=== PATIENT | male | born 1970 | race Caucasian/White ===

== ENCOUNTER 2017-11-17 19:30 | Emergency (ER) | payer OTHER ==
[~2017-11-17] VITALS: Ht 198.1 cm; Wt 90.7 kg
[~2017-11-17 19:30] MED LIST: ALBU8HFA2 INH; AMIT10; AZIT250 PO; CYCL10; DIAZ5 PO; DIAZ5EL; FLUO10 PO; FLUO20 PO; IBUP800 PO; LOPE2C PO; LORA.5 PO; LORA1 PO; NAPR500 PO; Norco 5-325 Ta1 EACH PO; OSEL75CA PO; PANT20; PRAZ1 PO; SUMA25 PO; TRAM50; Zofran8 MG PO
[2017-11-17] MEDS ORDERED: FLUO10 PO (20:41)
[2017-11-17] MEDS ORDERED: GABA300 PO (20:42)
[2017-11-17] MEDS ORDERED: PROP10 PO (20:43)
[2017-11-17] MEDS ORDERED: QUET25 PO (20:43)
[2017-11-17] MEDS ORDERED: HYDPAM50 PO (20:44)
[2017-11-17] MEDS ORDERED: SUCR1 PO (20:45)
[2018-02-17] MEDS ORDERED: QUET25 PO (20:52)
[2018-02-17] MEDS ORDERED: GABA300 PO (20:52)
[2018-02-17] MEDS ORDERED: ZYPREXA PO (20:53)
[2018-02-17] MEDS ORDERED: PROP10 PO (20:53)
[2018-02-17] MEDS ORDERED: Tamiflu75 MG PO (23:27)
== END 2017-11-17 21:42 | disposition home or self-care (01) ==
LOC: ER 19:30
DX: F32.9 Major depressive disorder, single episode, unspecified (principal); K21.9 Gastro-esophageal reflux disease without esophagitis; F41.9 Anxiety disorder, unspecified; Z79.899 Other long term (current) drug therapy
CPT/HCPCS: 99282

== ENCOUNTER 2017-12-14 00:46 | Emergency (ER) | payer OTHER ==
[~2017-12-14] VITALS: Ht 198.1 cm; Wt 93.0 kg
[~2017-12-14 00:46] MED LIST changes: +GABA300 PO; +HYDPAM50 PO; +PROP10 PO; +QUET25 PO; +SUCR1 PO
[2017-12-14] MEDS ORDERED: OLAN5 PO (01:16)
[2017-12-14 01:41] LABS: BASOPHILS ABSOLUTE AUTO 0.03 K/mm3 (0.00-0.23); BASOPHILS PERCENT AUTO 1 % (0-2); EOSINOPHILS ABSOLUTE AUTO 0.02 K/mm3 (0.00-0.68); EOSINOPHILS PERCENT AUTO 0 % (0-6); Hematocrit 44.6 % (37.0-53.0); Hemoglobin 15.1 g/dL (13.5-17.5); IMMATURE GRAN ABSOLUTE AUTO 0.03 K/mm3 (0.00-0.10); IMMATURE GRAN PERCENT AUTO 1 % (0-1); LYMPHOCYTES ABSOLUTE AUTO 1.16 K/mm3 (0.84-5.20); LYMPHOCYTES PERCENT AUTO 18 % (21-46); MONOCYTES ABSOLUTE AUTO 0.36 K/mm3 (0.16-1.47); MONOCYTES PERCENT AUTO 6 % (4-13); Mean Corpuscular HGB 30.4 pg (26.0-34.0); Mean Corpuscular HGB Conc 33.9 g/dL (31.5-36.5); Mean Corpuscular Volume 90 fL (80-100); Mean Platelet Volume 10.3 fL (9.1-12.4); NEUTROPHILS ABSOLUTE AUTO 4.93 K/mm3 (1.96-9.15); NEUTROPHILS PERCENT AUTO 75 % (41-73); Platelet Count 217 K/mm3 (150-400); RDW Coefficient Variation 13.3 % (11.7-14.2); Red Blood Cell Count 4.97 M/mm3 (4.30-5.90); White Blood Cell Count 6.53 K/mm3 (4.00-11.30)
[2017-12-14 01:54] LABS: Alanine Aminotransfer (ALT/SGP 20 U/L (12-78); Albumin, Blood 3.8 g/dL (3.4-5.0); Alk Phos 76 U/L (50-136); Anion Gap 8 mmol/L (6-16); Aspartate Aminotrans (AST/SGOT 16 U/L (12-37); Bilirubin, Total 0.3 mg/dL (0.1-1.0); Blood Urea Nitrogen 10 mg/dL (8-24); Bun/Creatinine Ratio 11.4 (12.0-20.0); CO2, Blood 28 mmol/L (21-32); Calcium, Blood 8.3 mg/dL (8.5-10.1); Chloride, Blood 105 mmol/L (98-108); Creatinine, Blood 0.88 mg/dL (0.60-1.20); Globulin, Blood 3.8 g/dL (2.2-4.0); Glomerular Filtration Rate >60 (60-); Glucose, Blood 119 mg/dL (70-99); Potassium, Blood 3.9 mmol/L (3.5-5.5); Sodium, Blood 141 mmol/L (136-145); Total Protein, Blood 7.6 g/dL (6.4-8.2)
[2018-02-17] MEDS ORDERED: GABA300 PO (20:52)
[2018-02-17] MEDS ORDERED: QUET25 PO (20:52)
[2018-02-17] MEDS ORDERED: ZYPREXA PO (20:53)
[2018-02-17] MEDS ORDERED: PROP10 PO (20:53)
[2018-02-17] MEDS ORDERED: Tamiflu75 MG PO (23:27)
== END 2017-12-14 04:04 | disposition home or self-care (01) ==
LOC: ER 00:46
PROVIDERS: Emergency Medicine
DX: R11.2 Nausea with vomiting, unspecified (principal); Z79.899 Other long term (current) drug therapy; Z79.891 Long term (current) use of opiate analgesic; F41.9 Anxiety disorder, unspecified; K21.9 Gastro-esophageal reflux disease without esophagitis
CPT/HCPCS: 80053; 83690; 85025; 96361; 96374; 96376; 99283; J2405; J7030

== ENCOUNTER 2018-02-14 22:29 | Emergency (ER) | payer OTHER ==
[~2018-02-14] VITALS: Ht 198.1 cm; Wt 95.2 kg
[~2018-02-14 22:29] MED LIST changes: +OLAN5 PO
[2018-02-17] MEDS ORDERED: GABA300 PO (20:52)
[2018-02-17] MEDS ORDERED: QUET25 PO (20:52)
[2018-02-17] MEDS ORDERED: ZYPREXA PO (20:53)
[2018-02-17] MEDS ORDERED: PROP10 PO (20:53)
[2018-02-17] MEDS ORDERED: Tamiflu75 MG PO (23:27)
== END 2018-02-15 00:25 | disposition home or self-care (01) ==
LOC: ER 22:29
DX: T40.2X1A Poisoning by other opioids, accidental (unintentional), initial encounter (principal); F10.129 Alcohol abuse with intoxication, unspecified; Z79.899 Other long term (current) drug therapy; F41.9 Anxiety disorder, unspecified; K21.9 Gastro-esophageal reflux disease without esophagitis
CPT/HCPCS: 99283

== ENCOUNTER 2018-05-23 22:33 | Emergency (ER) | payer OTHER ==
[~2018-05-23] VITALS: Ht 198.1 cm; Wt 90.7 kg
[~2018-05-23 22:33] MED LIST changes: +Tamiflu75 MG PO; +ZYPREXA PO
== END 2018-05-23 23:16 | disposition left against medical advice (07) ==
LOC: ER 22:33
DX: Z53.21 Procedure and treatment not carried out due to patient leaving prior to being seen by health care provider (principal)
CPT/HCPCS: 93005; 93010

== ENCOUNTER → 2018-06-25 | Outpatient (CLI) | payer OTHER | LOC: LAB EV 11:00 | DX: A04.8 Other specified bacterial intestinal infections (principal); B96.81 Helicobacter pylori [H. pylori] as the cause of diseases classified elsewhere | CPT/HCPCS: 87338 ==

== ENCOUNTER 2018-11-09 11:08 | Emergency (ER) | payer OTHER ==
[~2018-11-09] VITALS: Ht 182.9 cm; Wt 72.6 kg
[2018-11-09] MEDS ORDERED: Acetaminophen-1 EAC1 PO (12:53)
[2018-11-09] MEDS ORDERED: IBUP800 PO (12:53)
== END 2018-11-09 13:15 | disposition home or self-care (01) ==
LOC: ER 11:08
DX: S01.21XA Laceration without foreign body of nose, initial encounter (principal); Y04.8XXA Assault by other bodily force, initial encounter; Z79.899 Other long term (current) drug therapy; F41.9 Anxiety disorder, unspecified; K21.9 Gastro-esophageal reflux disease without esophagitis
CPT/HCPCS: 70160; 99284-25

== ENCOUNTER 2019-10-20 14:25 | Emergency (ER) | payer OTHER ==
[~2019-10-20] VITALS: Ht 198.1 cm; Wt 93.4 kg
[~2019-10-20 14:25] MED LIST changes: +Acetaminophen-1 EAC1 PO
[2019-10-20] MEDS ORDERED: CYCL10 PO (15:53)
[2019-10-20] MEDS ORDERED: QUETIAPINE FUMA25 MG (15:58)
[2019-10-20] MEDS ORDERED: Hydroxyzine HCl50 MG (15:58)
[2019-10-20] MEDS ORDERED: Mobic7.5 MG (15:58)
[2019-10-20] MEDS ORDERED: ALPRAZOLAM0.5 M1 (15:58)
[2019-10-20] MEDS ORDERED: TAMSULOSIN HCL0.4 M1 (15:58)
[2019-10-20] MEDS ORDERED: NEURONTIN300 MG (15:58)
[2019-10-20] MEDS ORDERED: PROZAC20 MG (15:58)
[2019-10-20] MEDS ORDERED: LIDOCAINE PAIN1 EACH TD (16:12)
== END 2019-10-20 16:15 | disposition home or self-care (01) ==
LOC: ER 14:25
DX: M25.511 Pain in right shoulder (principal); F41.9 Anxiety disorder, unspecified; K21.9 Gastro-esophageal reflux disease without esophagitis; Z79.899 Other long term (current) drug therapy
CPT/HCPCS: 99282

== ENCOUNTER 2022-07-08 19:55 | Emergency (ER) | payer OTHER ==
[~2022-07-08] VITALS: Ht 198.1 cm; Wt 91.2 kg
[~2022-07-08 19:55] MED LIST changes: +ALPRAZOLAM0.5 M1; +CYCL10 PO; +Hydroxyzine HCl50 MG; +LIDOCAINE PAIN1 EACH TD; +Mobic7.5 MG; +NEURONTIN300 MG; +PROZAC20 MG; +QUETIAPINE FUMA25 MG; +TAMSULOSIN HCL0.4 M1
== END 2022-07-08 21:34 | disposition home or self-care (01) ==
LOC: ER 19:55
DX: S22.42XA Multiple fractures of ribs, left side, initial encounter for closed fracture (principal); Y04.0XXA Assault by unarmed brawl or fight, initial encounter; Y92.149 Unspecified place in prison as the place of occurrence of the external cause; Z79.899 Other long term (current) drug therapy
CPT/HCPCS: 71101; A9270; J1885

== ENCOUNTER 2022-07-11 18:12 | Emergency (ER) | payer OTHER ==
[~2022-07-11] VITALS: Ht 198.1 cm; Wt 94.3 kg
[2022-07-11] MEDS ORDERED: Percocet 5-3251 EACH PO (21:17)
== END 2022-07-11 21:41 | disposition home or self-care (01) ==
LOC: ER 18:12
DX: S22.42XA Multiple fractures of ribs, left side, initial encounter for closed fracture (principal); X58.XXXA Exposure to other specified factors, initial encounter
CPT/HCPCS: A9270; J1885

== ENCOUNTER 2023-04-14 16:32 | Observation (INO) | payer OTHER ==
[~2023-04-14] VITALS: Ht 198.1 cm; Wt 103.5 kg
[~2023-04-14 16:32] MED LIST changes: +Percocet 5-3251 EACH PO; -QUETIAPINE FUMA25 MG; +QUETIAPINE FUMA25 MG PO
[2023-04-14 17:06] LABS: BASOPHILS ABSOLUTE AUTO 0.06 K/mm3 (0.00-0.23); BASOPHILS PERCENT AUTO 1 % (0-2); EOSINOPHILS ABSOLUTE AUTO 0.19 K/mm3 (0.00-0.68); EOSINOPHILS PERCENT AUTO 2 % (0-6); Hematocrit 44.3 % (37.0-53.0); Hemoglobin 15.6 g/dL (13.5-17.5); IMMATURE GRAN ABSOLUTE AUTO 0.06 K/mm3 (0.00-0.10); IMMATURE GRAN PERCENT AUTO 1 % (0-1); LYMPHOCYTES ABSOLUTE AUTO 3.02 K/mm3 (0.84-5.20); LYMPHOCYTES PERCENT AUTO 28 % (21-46); MONOCYTES ABSOLUTE AUTO 0.86 K/mm3 (0.16-1.47); MONOCYTES PERCENT AUTO 8 % (4-13); Mean Corpuscular HGB 30.2 pg (26.0-34.0); Mean Corpuscular HGB Conc 35.2 g/dL (31.5-36.5); Mean Corpuscular Volume 86 fL (80-100); Mean Platelet Volume 10.6 fL (9.1-12.4); NEUTROPHILS ABSOLUTE AUTO 6.52 K/mm3 (1.96-9.15); NEUTROPHILS PERCENT AUTO 61 % (41-73); Platelet Count 278 K/mm3 (150-400); RDW Coefficient Variation 13.2 % (11.7-14.2); RDW Standard Deviation 41.2 fL (35.1-46.3); Red Blood Cell Count 5.16 M/mm3 (4.30-5.90); White Blood Cell Count 10.71 K/mm3 (4.00-11.30)
[2023-04-14 17:33] LABS: Albumin, Blood 3.8 g/dL (3.4-5.0); Bilirubin, Total 0.4 mg/dL (0.1-1.0); Bun/Creatinine Ratio 13.6 (12.0-20.0); Calcium, Blood 9.3 mg/dL (8.5-10.1); Creatinine, Blood 1.18 mg/dL (0.60-1.20); Globulin, Blood 3.7 g/dL (2.2-4.0); Potassium, Blood 3.5 mmol/L (3.5-5.5); Total Protein, Blood 7.5 g/dL (6.4-8.2)
[2023-04-14] MEDS ORDERED: DICY20 PO (21:57)
[2023-04-14] MEDS ORDERED: OMEP20ER PO (21:57)
[2023-04-14] MEDS ORDERED: ONDA4ODT MM (21:57)
[2023-04-15 01:38] VITALS: BP 154/99
--- NOTE | 2023-04-15 02:51 | NUR ---
PATIENT ARRIVED FROM ER AND BEFORE HE WAS IN THE ROOM HE WAS ASKING NURSE TO REMOVE NG TUBE IN THE HALLWAY. NURSE SETTLED PATIENT IN BED ASKED HIM TO ALLOW NURSE TO EXPLAIN WHAT THE TUBE WAS FRO AND PROVIDE EDUCATION. PATIENT LISTENED BUT STATED HE FELT LIKE HE WAS HAVING A PANIC ATTACK. MD NOTIFIED, IV ATIVAN ORDERED AND GIVEN. REQUESTED PATIENT ALLOW NURSE TO FINISH HIS ADMISSION THEN WE CAN TALK ABOUT THE PLAN OF CARE WHILE HIS ANXIETY MEDS START TO TAKE EFFECT. PATIENT COMPLIED WITH ADMISSION BUT WAS ADAMANT THAT HE WAS LEAVING AND NEEDED THE NG TUBE OUT. NURSE EDUCATED PATIENT ON RISK OF LEAVING AGAINST MEDICAL ADVISE. PATIENT AGREED AFTER LONG CONVERSATION THAT HE WOULD STAY IF NG TUBE REMOVED. MD NOTIFIED AND NG TUBE REMOVED. PATIENT NOW RESTING IN BED. PATIENT REPORTS PAIN IS TOLERABLE AND HE IS NO LONGER NAUSEATED.
[2023-04-15 05:09] LABS: BASOPHILS ABSOLUTE AUTO 0.02 K/mm3 (0.00-0.23); BASOPHILS PERCENT AUTO 0 % (0-2); EOSINOPHILS ABSOLUTE AUTO 0.01 K/mm3 (0.00-0.68); EOSINOPHILS PERCENT AUTO 0 % (0-6); Hematocrit 43.2 % (37.0-53.0); Hemoglobin 14.8 g/dL (13.5-17.5); IMMATURE GRAN ABSOLUTE AUTO 0.03 K/mm3 (0.00-0.10); IMMATURE GRAN PERCENT AUTO 0 % (0-1); LYMPHOCYTES ABSOLUTE AUTO 1.07 K/mm3 (0.84-5.20); LYMPHOCYTES PERCENT AUTO 12 % (21-46); MONOCYTES ABSOLUTE AUTO 0.71 K/mm3 (0.16-1.47); MONOCYTES PERCENT AUTO 8 % (4-13); Mean Corpuscular HGB 30.1 pg (26.0-34.0); Mean Corpuscular HGB Conc 34.3 g/dL (31.5-36.5); Mean Corpuscular Volume 88 fL (80-100); Mean Platelet Volume 10.6 fL (9.1-12.4); NEUTROPHILS ABSOLUTE AUTO 7.27 K/mm3 (1.96-9.15); NEUTROPHILS PERCENT AUTO 80 % (41-73); Platelet Count 222 K/mm3 (150-400); RDW Coefficient Variation 13.4 % (11.7-14.2); RDW Standard Deviation 43.3 fL (35.1-46.3); Red Blood Cell Count 4.92 M/mm3 (4.30-5.90); White Blood Cell Count 9.11 K/mm3 (4.00-11.30)
--- NOTE | 2023-04-15 05:16 | NUR ---
SUMMARY: PATIENT ADMITTED OVERNIGHT FOR SBO. PATIENT ARRIVED WITH NG AND REPORTED HE WAS HAVING A PANIC ATTACK AND REFUSED TO LEAVE IT IN. MD NOTIFIED, MEDS GIVEN BEFORE REMOVEAL TO TRY AND HELP PATIENT RELAX. PATIENT STILL REFUSED NG AFTER EDUCATION WAS PROVIDED. PATIENT SHORTLY AFTER REMOVAL OF NG TUBE REPORTED PAIN IN HIS ABDOMEN AGAIN. PAIN MEDS GIVEN 1X. IV FLUIDS RUNNING. PATIENT AOX4.
[2023-04-15 05:32] LABS: Albumin, Blood 3.7 g/dL (3.4-5.0); Albumin/Globulin Ratio 1.1 (0.8-1.8); Bilirubin, Total 0.8 mg/dL (0.1-1.0); Bun/Creatinine Ratio 12.2 (12.0-20.0); Calcium, Blood 8.6 mg/dL (8.5-10.1); Creatinine, Blood 0.98 mg/dL (0.60-1.20); Globulin, Blood 3.3 g/dL (2.2-4.0)
--- NOTE | 2023-04-15 06:18 | NUR ---
PATIENT WOKE UP THIS MORNING AND STATED THAT HE WANTED TO GO TO WORK TO HE WAS GOING TO CHECK OUT. EDUCATED PATIENT THAT HE SHOULD STAY AND SPEAK WITH A PHYSICIAN THIS MORNING. PATIENT POLITELY DECLINED STATED THAT HE NEEDED TO GET TO WORK. RISK VS BENEFIT OF STAYING AND LEAVING REVIEWED WITH PATIENT. PATIENT VERBALIZED UNDERSTANDING AND SIGNED AMA FORM. PATIENT IV WAS REMOVED AND HE WALKED INDEPENDENTLY OFF UNIT.
[2023-04-15] MEDS ORDERED: Prozac40 MG PO (15:16)
[2023-04-15] MEDS ORDERED: GABA300 PO (15:17)
== END 2023-04-15 06:20 | disposition left against medical advice (07) ==
LOC: ER 16:32 → MEDS 16:33
PROVIDERS: Emergency Medicine; Family Medicine; ADMIT Hospitalist
DX: K56.609 Unspecified intestinal obstruction, unspecified as to partial versus complete obstruction (principal); F41.9 Anxiety disorder, unspecified; N40.0 Benign prostatic hyperplasia without lower urinary tract symptoms; G89.29 Other chronic pain; M54.9 Dorsalgia, unspecified; F32.A Depression, unspecified; G47.00 Insomnia, unspecified; Z53.29 Procedure and treatment not carried out because of patient's decision for other reasons
CPT/HCPCS: 36415; 71045; 74177; 80053; 83690; 84484; 85025; 93005; 93010; 96372-59; 96374-59; 96375; 96376; 99285-25; G0378; J0500; J1170; J2060; J2270; J2405; J7030; Q9967

== ENCOUNTER 2023-04-15 10:04 | Inpatient (IN) | payer OTHER ==
[~2023-04-15] VITALS: Ht 198.1 cm; Wt 108.7 kg
[~2023-04-15 10:04] MED LIST changes: +DICY20 PO; +OMEP20ER PO; +ONDA4ODT MM
[2023-04-15 10:31] LABS: BASOPHILS ABSOLUTE AUTO 0.03 K/mm3 (0.00-0.23); BASOPHILS PERCENT AUTO 0 % (0-2); EOSINOPHILS ABSOLUTE AUTO 0.03 K/mm3 (0.00-0.68); EOSINOPHILS PERCENT AUTO 0 % (0-6); Hematocrit 47.1 % (37.0-53.0); Hemoglobin 16.3 g/dL (13.5-17.5); IMMATURE GRAN ABSOLUTE AUTO 0.04 K/mm3 (0.00-0.10); IMMATURE GRAN PERCENT AUTO 0 % (0-1); LYMPHOCYTES ABSOLUTE AUTO 1.19 K/mm3 (0.84-5.20); LYMPHOCYTES PERCENT AUTO 11 % (21-46); MONOCYTES ABSOLUTE AUTO 0.83 K/mm3 (0.16-1.47); MONOCYTES PERCENT AUTO 8 % (4-13); Mean Corpuscular HGB 30.4 pg (26.0-34.0); Mean Corpuscular HGB Conc 34.6 g/dL (31.5-36.5); Mean Corpuscular Volume 88 fL (80-100); NEUTROPHILS ABSOLUTE AUTO 8.81 K/mm3 (1.96-9.15); NEUTROPHILS PERCENT AUTO 81 % (41-73); RDW Coefficient Variation 13.8 % (11.7-14.2); RDW Standard Deviation 43.8 fL (35.1-46.3); Red Blood Cell Count 5.36 M/mm3 (4.30-5.90); White Blood Cell Count 10.93 K/mm3 (4.00-11.30)
[2023-04-15 10:48] LABS: Albumin, Blood 3.8 g/dL (3.4-5.0); Bilirubin, Total 1.3 mg/dL (0.1-1.0); Bun/Creatinine Ratio 13.1 (12.0-20.0); Calcium, Blood 9.4 mg/dL (8.5-10.1); Globulin, Blood 3.7 g/dL (2.2-4.0); Potassium, Blood 5.4 mmol/L (3.5-5.5); Total Protein, Blood 7.5 g/dL (6.4-8.2)
[2023-04-15 10:51] LABS: Mean Platelet Volume 10.8 fL (9.1-12.4); Platelet Count 233 K/mm3 (150-400)
[2023-04-15 13:25] VITALS: BP 166/107
[2023-04-15] MEDS ORDERED: Prozac40 MG PO (15:16)
[2023-04-15] MEDS ORDERED: GABA300 PO (15:17)
[2023-04-15 16:22] VITALS: BP 140/91
--- NOTE | 2023-04-15 18:02 | NUR ---
NEW ER ADMIT Patient readmitted for SBO, left this morning. Verbalized severe pain, anxiety, and felt "claustrophobic" when the NG tube was placed last night. Provided education on SBO & interventions for bowel rest, NPO, and if needed NG tube. Pt verbalized understanding plan of care. Administred IV Toradol & heating pad for ABD. Toradol IV effective for pain management. Bowel tones absent, except for RLQ quiet sounds observed. Reports mild nausea, no vomiting. Vitals stable, systolic 140-160s. Home meds not ordered at this time, pt states he is unable to tolerate PO meds, vomited this morning when eating. Ativan given for anxiety, patient comfortable at this time. Will continue plan of care.
[2023-04-15 19:09] VITALS: BP 146/97
[2023-04-16 03:49] VITALS: BP 133/86
--- NOTE | 2023-04-16 04:27 | NUR ---
RN SUPPLEMENTAL SUMMARY A/OX4. INDEPENDENT IN THE ROOM. ABLE TO MAKE NEEDS KNOWN. PT C/O OF RIGHT QUAD ABD PAIN T/O THE NIGHT. MED PER EMAR. PT HAVING EPISODES OF ANXIETY--GETTIN OUT OF BED, PACING. APROX 0345; PT HAVING INCONT BOWEL MOVMENT. WOKE HIM UP OUT OF SLEEP AND FINISHED IN THE BATHROOM. THIS NURSE DID NOT OBSERVE STOOL; PT REPORTS MOSTLY SOFT/LIQUID. PT ALSO REPORTS AT THAT TIME PAIN WAS MUCH IMPROVED.
[2023-04-16 04:30] LABS: BASOPHILS ABSOLUTE AUTO 0.03 K/mm3 (0.00-0.23); BASOPHILS PERCENT AUTO 0 % (0-2); EOSINOPHILS ABSOLUTE AUTO 0.03 K/mm3 (0.00-0.68); EOSINOPHILS PERCENT AUTO 0 % (0-6); Hematocrit 41.6 % (37.0-53.0); Hemoglobin 14.2 g/dL (13.5-17.5); IMMATURE GRAN ABSOLUTE AUTO 0.04 K/mm3 (0.00-0.10); IMMATURE GRAN PERCENT AUTO 1 % (0-1); LYMPHOCYTES PERCENT AUTO 12 % (21-46); MONOCYTES ABSOLUTE AUTO 0.69 K/mm3 (0.16-1.47); MONOCYTES PERCENT AUTO 8 % (4-13); Mean Corpuscular HGB 30.5 pg (26.0-34.0); Mean Corpuscular HGB Conc 34.1 g/dL (31.5-36.5); Mean Corpuscular Volume 90 fL (80-100); Mean Platelet Volume 10.4 fL (9.1-12.4); NEUTROPHILS ABSOLUTE AUTO 6.89 K/mm3 (1.96-9.15); NEUTROPHILS PERCENT AUTO 80 % (41-73); Platelet Count 209 K/mm3 (150-400); RDW Coefficient Variation 13.9 % (11.7-14.2); RDW Standard Deviation 45.6 fL (35.1-46.3); Red Blood Cell Count 4.65 M/mm3 (4.30-5.90); White Blood Cell Count 8.68 K/mm3 (4.00-11.30)
[2023-04-16 04:50] LABS: Albumin, Blood 3.2 g/dL (3.4-5.0); Albumin/Globulin Ratio 1.1 (0.8-1.8); Bilirubin, Total 1.1 mg/dL (0.1-1.0); Bun/Creatinine Ratio 14.8 (12.0-20.0); Calcium, Blood 8.1 mg/dL (8.5-10.1); Creatinine, Blood 1.08 mg/dL (0.60-1.20); Magnesium, Blood 1.9 mg/dL (1.6-2.4); Potassium, Blood 3.6 mmol/L (3.5-5.5); Total Protein, Blood 6.2 g/dL (6.4-8.2)
[2023-04-16 07:41] VITALS: BP 125/83
--- NOTE | 2023-04-16 08:05 | NUR ---
pt laying in bed awake a/ox4, pleasant and cooperative with care, follows commands well, denies pain at this time, lungs are clear t/o, on r/a, resp even and unlabored, no cough noted, hrr, no edema noted, ppp+2, cap refill<3sec, vs stable, afebrile, iv site is clear and patent, btx4, abd flat soft, btx4 a bit hypoactive, voids without diff, skin c/w/d, maew, yusef, call light in reach.
[2023-04-16 16:25] VITALS: BP 119/70
--- NOTE | 2023-04-16 18:08 | NUR ---
pt had two soft bm's today, he is trying full liquid diet very slowly but states it is causing some bloating, he recieved one dose of ativan today for anxiety, slept for a while after, no further changes this shift. call light in reach, up ad keith in room.
[2023-04-16 19:54] VITALS: BP 138/86
[2023-04-17 04:41] VITALS: BP 116/82
[2023-04-17 05:23] LABS: BASOPHILS ABSOLUTE AUTO 0.03 K/mm3 (0.00-0.23); BASOPHILS PERCENT AUTO 1 % (0-2); EOSINOPHILS PERCENT AUTO 4 % (0-6); Hemoglobin 13.1 g/dL (13.5-17.5); IMMATURE GRAN ABSOLUTE AUTO 0.02 K/mm3 (0.00-0.10); IMMATURE GRAN PERCENT AUTO 0 % (0-1); LYMPHOCYTES ABSOLUTE AUTO 1.28 K/mm3 (0.84-5.20); LYMPHOCYTES PERCENT AUTO 27 % (21-46); MONOCYTES ABSOLUTE AUTO 0.49 K/mm3 (0.16-1.47); MONOCYTES PERCENT AUTO 10 % (4-13); Mean Corpuscular HGB 30.2 pg (26.0-34.0); Mean Corpuscular HGB Conc 33.6 g/dL (31.5-36.5); Mean Corpuscular Volume 90 fL (80-100); Mean Platelet Volume 10.3 fL (9.1-12.4); NEUTROPHILS ABSOLUTE AUTO 2.74 K/mm3 (1.96-9.15); NEUTROPHILS PERCENT AUTO 58 % (41-73); Platelet Count 188 K/mm3 (150-400); RDW Coefficient Variation 13.8 % (11.7-14.2); RDW Standard Deviation 45.3 fL (35.1-46.3); Red Blood Cell Count 4.34 M/mm3 (4.30-5.90); White Blood Cell Count 4.76 K/mm3 (4.00-11.30)
[2023-04-17 05:46] LABS: Bun/Creatinine Ratio 14.5 (12.0-20.0); Creatinine, Blood 0.96 mg/dL (0.60-1.20); Potassium, Blood 3.5 mmol/L (3.5-5.5)
[2023-04-17 07:22] VITALS: BP 112/78
--- NOTE | 2023-04-17 08:06 | NUR ---
SUMMARY PT SLEPT MOST OF NIGHT. VERB FULL LIQ DINNER CAUSED SOME BLOATING.NO C/O NAUSEA OR EMESIS.
[2023-04-17 14:31] VITALS: BP 111/75
[2023-04-17] MEDS ORDERED: Acetaminophen650 M1 PO (16:34)
[2023-04-17] MEDS ORDERED: ONDA4 PO (16:34)
--- NOTE | 2023-04-17 17:35 | NUR ---
SHIFT/DC SUMMARY: Pt remains A&O X3 this shift. VSS, resp even nonlabored on RA. Abdominal bloating noted. Tolerating reg diet for lunch and dinner today. Pain/headache managed with Tylenol. DC instructions reviewed with return verbal understanding. PIV dc'd. Pt awaiting ride from roommate.
== END 2023-04-17 18:23 | disposition home or self-care (01) | DRG 390 ==
LOC: ER 10:04 → MEDS 10:05 → ENPENDDIS 04-17 16:13 → MEDS 04-17 18:23
PROVIDERS: Student in an Organized Health Care Education/Training Program; ADMIT Internal Medicine
DX: K56.609 Unspecified intestinal obstruction, unspecified as to partial versus complete obstruction (principal); F41.9 Anxiety disorder, unspecified; N40.0 Benign prostatic hyperplasia without lower urinary tract symptoms; M54.9 Dorsalgia, unspecified; G89.29 Other chronic pain; F32.A Depression, unspecified; K21.9 Gastro-esophageal reflux disease without esophagitis; E78.5 Hyperlipidemia, unspecified; F51.04 Psychophysiologic insomnia; K59.09 Other constipation; Z79.899 Other long term (current) drug therapy; Z79.891 Long term (current) use of opiate analgesic; Z98.890 Other specified postprocedural states
CPT/HCPCS: 36415; 80048; 80053; 82947; 83036; 83735; 85025; 96374-59; 96375; 99285-25; A9270; J0612; J0780; J1170; J1650; J1815; J1885; J1940; J2060; J2405; J3010; J7030

== ENCOUNTER 2025-07-16 02:49 | Emergency (ER) | payer OTHER ==
[~2025-07-16] VITALS: Ht 200.7 cm; Wt 91.6 kg
[~2025-07-16 02:49] MED LIST changes: +Acetaminophen650 M1 PO; +ONDA4 PO; +Prozac40 MG PO
[2025-07-16 03:13] VITALS: BP 135/103
[2025-07-16] MEDS ORDERED: HYDHCL25 PO (04:33)
== END 2025-07-16 04:50 | disposition home or self-care (01) ==
LOC: ER 02:49
DX: F41.9 Anxiety disorder, unspecified (principal); K21.9 Gastro-esophageal reflux disease without esophagitis; Z79.899 Other long term (current) drug therapy
CPT/HCPCS: 99283; A9270